=== PATIENT | male | born 1990 | race Caucasian/White ===

== ENCOUNTER 2016-12-20 20:33 | Inpatient (IN) | payer OTHER ==
[2016-12-20 20:53] VITALS: BMI 32.6
--- NOTE | 2016-12-20 21:28 | HP ---
COWS - Scale Resting Pulse: 2= [place] 101-120 Sweatin= Chills/Flushing Restless Observation: 5= Unable to Sit Still Pupil Size: 0= Normal to Room Light Bone or Joint Aches: 2= Severe Diffuse Aches Runny Nose/ Eye Tearin= Runny Nose/Eyes GI Upset > 30mins: 1= Stomach Cramp Tremor Observation: 1= Tremor [place], Not Seen Yawning Observation: 1= 1-2x During Session Anxiety or Irritability: 2=Irritable/Anxious Goose Flesh Skin: 3=Piloerection COWS Score: 20 Admission ROS [facility] - [facility] Chief Complaint: WITHDRAWAL SYMPTOMS Allergies/Adverse Reactions: Allergies Allergy/AdvReac Type Severity Reaction Status Date / Time No Known Allergies Allergy Verified 07/26/16 11:32 History of Present Illness: 26 Y.O. MAN WITH A 7 YEAR HISTORY OF OPIATE ABUSE IS SEEKING DETOX. HE REPORTS HE'S BEEN INJECTING HIMSELF WITH HEROIN FOR THE LAST YEAR. HE STATES HE WAS PRESCRIBED SUBOXONE BY HIS PCP BUT THE PT. STARTED USING HEROIN AGAIN. HE REPORTS HAVING A PERIOD OF 7-8 MONTHS OF SOBRIETY. Exam Limitations: No Limitations - Ebola screening Have you traveled outside of the country in the last 21 days: No Have you had contact with anyone from an Ebola affected area: No Have you been sick,other than usual withdrawal symptoms: No Do you have a fever: No - Review of Systems Constitutional: Chills, Diaphoresis, Loss of Appetite, Changes in sleep EENT: reports: Tearing, Nose Congestion Respiratory: reports: No Symptoms reported Cardiac: reports: No Symptoms Reported GI: reports: Nausea, Poor Appetite, Abdominal cramping : reports: No Symptoms Reported Musculoskeletal: reports: No Symptoms Reported Integumentary: reports: No Symptoms Reported Neuro: reports: Tremors Endocrine: reports: No Symptoms Reported Hematology: reports: No Symptoms Reported Psychiatric: reports: Orientated x3, Anxious (TAKES XANAX AND VALIUM) Other Systems: Reviewed and Negative Patient History - Patient Medical History Hx Anemia: No Hx Asthma: Yes (ALBUTEROL AND ADVAIR ) Hx Chronic Obstructive Pulmonary Disease (COPD): No Hx Cancer: No Hx Cardiac Disorders: No Hx Congestive Heart Failure: No Hx Hypertension: No Hx Hypercholesterolemia: No Hx Pacemaker: No HX Cerebrovascular Accident: No Hx Seizures: No Hx Dementia: No Hx Diabetes: No Hx Gastrointestinal Disorders: No Hx Liver Disease: No Hx Genitourinary Disorders: No Hx Sexually Transmitted Disorders: No Hx Renal Disease (ESRD): No Hx Thyroid Disease: No Hx Human Immunodeficiency Virus (HIV): No (last 11/26 negative) Hx Hepatitis C: No Hx Depression: No Hx Suicide Attempt: No Hx Bipolar Disorder: No Hx Schizophrenia: No - Patient Surgical History Past Surgical History: No Hx Neurologic Surgery: No Hx Cataract Extraction: No Hx Cardiac Surgery: No Hx Lung Surgery: No Hx Breast Surgery: No Hx Breast Biopsy: No Hx Abdominal Surgery: No Hx Appendectomy: No Hx Cholecystectomy: No Hx Genitourinary Surgery: No Hx Orthopedic Surgery: Yes (arthroscopic surgery right knee in 2007) Anesthesia Reaction: No - PPD History Previous Implant?: Yes Documented Results: Negative w/o proof Implanted On Prior R Admission?: Yes Date: 07/28/16 PPD to be Administered?: Yes - Reproductive History Patient is a Female of Child Bearing Age (11 -55 yrs old): No - Smoking Cessation Smoking history: Former smoker Have you smoked in the past 12 months: Yes Aproximately how many cigarettes per day: 1 Cigars Per Day: 0 Hx Chewing Tobacco Use: No Initiated information on smoking cessation: No - Substance & Tx. History Hx Alcohol Use: No Hx Substance Use: Yes Substance Use Type: Heroin Hx Substance Use Treatment: Yes (TWICE TO DETOX BUT LEFT AMA BOTH TIMES ) - Substances Abused Heroin Route: Injection Frequency: Daily Amount used: 20 bags Age of first use: 24 Date of Last Use: 12/20/16 oxycodone Frequency: 1-2 times per week Amount used: 4 pills Age of first use: 17 Family Disease History - Family Disease History Family Disease History: Diabetes: Grandparent (htn ), Respiratory: Mother ( asthma ), Other: Grandparent Admission Physical Exam BHS - Vital Signs Vital Signs: Vital Signs - 24 hr 12/20/16 20:51 Temperature 96.3 F L Pulse Rate 108 H Respiratory 20 Rate Blood Pressure 130/83 - Physical General Appearance: Yes: Tremorous, Anxious HEENTM: Yes: Nasal Congestion Respiratory: Yes: No Respiratory Distress, No Accessory Muscle Use, Wheezing, Expiration Neck: Yes: No masses,lesions,Nodules, Trachea in good position Breast: Yes: Breast Exam Deferred Cardiology: Yes: Regular Rhythm, S1, S2, Tachycardia Abdominal: Yes: Normal Bowel Sounds, Non Tender, Flat, Soft Genitourinary: Yes: Within Normal Limits Back: Yes: Normal Inspection Musculoskeletal: Yes: Gait Steady Extremities: Yes: Normal Capillary Refill, Normal Inspection, Normal Range of Motion, Non-Tender Neurological: Yes: Fully Oriented, Alert, Normal Mood/Affect, Normal Response, Abnormal Cranial NS Integumentary: Yes: Normal Color, Dry, Warm Lymphatic: Yes: Within Normal Limits - Diagnostic (1) Opioid dependence with withdrawal Current Visit: Yes Status: Chronic (2) Asthma Current Visit: Yes Status: Chronic Qualifiers: Asthma severity: mild intermittent Asthma complication type: uncomplicated Qualified Code(s): J45.20 - Mild intermittent asthma, uncomplicated Cleared for Admission [facility] - Detox or Rehab [facility] Level of Care: Medically Managed Detox Regimen/Protocol: Methadone [facility] Breath Alcohol Content Breath Alcohol Content: 0 Urine Drug Screen - Results Drug Screen Negative: No Urine Drug Screen Results: [place]-Cocaine, OPI-Opiates, BZO-Benzodiazepines, MTD- Methadone, TCA-Tricyclic Antidepress, OXY-Oxycodone
[2016-12-20] MEDS ORDERED: ACETAMINOPHEN 325 MG TABLET (FP) PO PRN (21:42)
[2016-12-20] MEDS ORDERED: LOPERAMIDE HCL 2 MG CAPSULE PO PRN (21:42)
[2016-12-20] MEDS ORDERED: MAGNESIUM HYDROX 2400MG/30ML ORAL SUSPENSION 30 ML CUP PO PRN (21:42)
[2016-12-20] MEDS ORDERED: guaiFENesin/D-METHORPHAN HB 10 ML UNIT-DOSE CUPS PO PRN (21:42)
[2016-12-20] MEDS ORDERED: P-EPHED 60MG/TRIPROLIDI 2.5MG TABLET PO PRN (21:42)
[2016-12-20] MEDS ORDERED: MAGNESIUM CITRATE 300 ML BOTTLE PO PRN (21:42)
[2016-12-20] MEDS ORDERED: IBUPROFEN 400 MG TABLET (FP) PO PRN (21:42)
[2016-12-20] MEDS ORDERED: METHADONE HCL 10 MG TABLET (FOR DETOX USE ONLY) PO ONE ×2 (21:42→23:00)
[2016-12-20] MEDS ORDERED: MAG HYDROX/AL HYDROX/SIMETH 30 ML UNIT-DOSE CUP PO PRN (21:42)
[2016-12-20] MEDS ORDERED: diphenhydrAMINE HCL 50 MG CAPSULE PO PRN (21:42)
[2016-12-20] MEDS ORDERED: MENTHOL/PHENOL 1 EACH UD MM PRN (21:42)
[2016-12-20] MEDS ORDERED: hydrOXYzine PAMOATE 50 MG CAPSULE (FP) PO PRN (21:42)
[2016-12-20] MEDS ORDERED: THIAMINE HCL 100 MG TABLET (FP) PO SCH (22:00)
[2016-12-20] MEDS: diazePAM 5 MG TABLET PO PRN (22:54)
[2016-12-20] MEDS: ALBUTEROL SO4 6.7 GM HFA INHALER IH SCH (22:55)
[2016-12-20 23:07] LABS: URINE APPEARANCE CLEAR; URINE BILIRUBIN NEGATIVE (NEGATIVE); URINE BLOOD NEGATIVE (NEGATIVE); URINE COLOR YELLOW; URINE GLUCOSE (UA) NEGATIVE (NEGATIVE); URINE KETONE NEGATIVE (NEGATIVE); URINE LEUK ESTERASE NEGATIVE (NEGATIVE); URINE NITRITE NEGATIVE (NEGATIVE); URINE PROTEIN NEGATIVE (NEGATIVE); URINE UROBILINOGEN NEGATIVE E.U./dl (0.2-1.0)
[2016-12-21] MEDS: ALBUTEROL SO4 6.7 GM HFA INHALER IH SCH ×6 (01:49→21:34)
--- NOTE | 2016-12-21 08:27 | CONSULT ---
[facility] Psychiatric Consult - Data Date of interview: 12/21/16 Admission source: [facility] Identifying data: This is 26 years old male with no psychiatric hospitalization history intoxicated with: Opioids, Cocaine, Benzodiazepins, Methadone and Nicotine Substance Abuse History: - Smoking Cessation. Smoking history: Former smoker. Have you smoked in the past 12 months: Yes. Aproximately how many cigarettes per day: 1. Cigars Per Day: 0. Hx Chewing Tobacco Use: No. Initiated information on smoking cessation: No. - Substance & Tx. History. Hx Alcohol Use: No. Hx Substance Use: Yes. Substance Use Type: Heroin. Hx Substance Use Treatment: Yes (TWICE TO DETOX BUT LEFT AMA BOTH TIMES ). - Substances Abused. Heroin. Route: Injection. Frequency: Daily. Amount used: 20 bags. Age of first use: 24. Date of Last Use: 12/20/16. oxycodone. Frequency: 1-2 times per week. Amount used: 4 pills. Age of first use: 17 Medical History: Asthma, Psychiatric History: Patient reports history of depression and anxiety, reports currently is clover taking psychiatric medications Physical/Sexual Abuse/Trauma History: Denies Additional Comment: Observation. Detox Unit Care Protocol Mental Status Exam - Mental Status Exam Alert and Oriented to: Person Patient Appearance: Unkempt Mood: Sad Affect: Flat Patient Behavior: Sedated Speech Pattern: Delayed Voice Loudness: Mildly Soft/Quiet Thought Process: Circumstantial Thought Disorder: Being Controlled Hallucinations: Denies Suicidal Ideation: Denies Homicidal Ideation: Denies Insight/Judgement: Fair Sleep: Difficulty falling asleep Muscle strength/Tone: Normal Gait/Station: Shuffling Additional Comments: Observation. Detox Unit Care Protocol Psychiatric Findings - Problem List ([place] 1, 2,3) (1) Opioid dependence with withdrawal Current Visit: Yes Status: Chronic (2) Cocaine dependence Current Visit: Yes Status: Acute (3) Benzodiazepine abuse Current Visit: Yes Status: Acute (4) Nicotine dependence Current Visit: Yes Status: Acute (5) Drug-induced mood disorder Current Visit: Yes Status: Suspected - Initial Treatment Plan Initial Treatment Plan: Observation. Detox Unit Care Protocol
[2016-12-21 09:41] LABS: MCH 30.2 pg (25.7-33.7); MCHC 33.9 g/dl (32.0-35.9); MEAN CELL VOLUME 89.1 fl (80-96); MEAN PLT VOLUME 8.1 fl (7.5-11.1); PLATELET COUNT 228 K/MM3 (134-434); RDW 13.2 % (11.9-15.9); WHITE BLOOD COUNT 5.7 K/mm3 (4.0-10.0)
[2016-12-21] MEDS ORDERED: METHADONE HCL 10 MG TABLET (FOR DETOX USE ONLY) PO ONE (10:00)
[2016-12-21] MEDS ORDERED: PRENATAL VITAMINS W/ FOLIC ACID TABLET (FP) PO SCH (10:00)
[2016-12-21 10:16] LABS: ALBUMIN 3.7 g/dl (3.4-5.0); ALK PHOS 95 U/L (45-117); ANION GAP 8 (8-16); BILIRUBIN,TOTAL 0.4 mg/dL (0.2-1.0); CALCIUM 9.2 mg/dL (8.5-10.1); CO2 30 mmol/L (21-32); CREATININE 1.1 mg/dL (0.7-1.3); GLUCOSE,RANDOM 98 mg/dL (74-106); SGOT/AST 20 U/L (15-37); SGPT/ALT 67 U/L (12-78); TOT PROT 6.9 g/dl (6.4-8.2)
[2016-12-21] MEDS: diazePAM 5 MG TABLET PO PRN ×2 (10:34→14:51)
--- NOTE | 2016-12-21 10:37 | EKG ---
Test Reason : Blood Pressure : / mmHG Vent. Rate : 091 BPM Atrial Rate : 091 BPM P-R Int : 136 ms QRS Dur : 088 ms QT Int : 352 ms P-R-T Axes : 044 059 006 degrees QTc Int : 432 ms NORMAL SINUS RHYTHM NORMAL ECG NO PREVIOUS ECGS AVAILABLE Confirmed by ASIA BENAVIDEZ MD ([id number]) on 12/21/2016 10:36:49 AM Referred By: Confirmed By:ASIA BENAVIDEZ MD
[2016-12-21] MEDS ORDERED: ALBUTEROL SO4 2.5/IPRATROPIUM 0.5 INH SOL 3 ML VIAL.NEB. NEB PRN (13:36)
--- NOTE | 2016-12-21 13:42 | PN ---
S COWS - Scale Resting Pulse: 0= [place] 80 or Below Sweatin=Flushed/Facial Moisture Restless Observation: 1= Difficult to Sit Still Pupil Size: 0= Normal to Room Light Bone or Joint Aches: 2= Severe Diffuse Aches Runny Nose/ Eye Tearin= Runny Nose/Eyes GI Upset > 30mins: 1= Stomach Cramp Tremor Observation of Outstretched Hands: 2= Slight Tremor Visible Yawning Observation: 2= >3x During Session Anxiety or Irritability: 2=Irritable/Anxious Goose Flesh Skin: 0=Smooth Skin COWS Score: 14 BHS Progress Note (SOAP) Subjective: irritable agitation anxiety sweats body aches rash to left arm chills wheezing Objective: 12/21/16 13:41 Vital Signs Temperature 97.7 F 12/21/16 10:16 Pulse Rate 77 12/21/16 10:16 Respiratory Rate 18 12/21/16 10:16 Blood Pressure 121/77 12/21/16 10:16 O2 Sat by Pulse Oximetry (%) Laboratory Tests 12/20/16 12/21/16 12/21/16 23:00 06:30 06:30 WBC 5.7 RBC 4.60 Hgb 13.9 Hct 41.0 MCV 89.1 MCHC 33.9 RDW 13.2 Plt Count 228 MPV 8.1 Sodium 141 Potassium 4.2 Chloride 103 Carbon Dioxide 30 Anion Gap 8 BUN 11 Creatinine 1.1 Creat Clearance w eGFR > 60 Random Glucose 98 Calcium 9.2 Total Bilirubin 0.4 D AST 20 D ALT 67 D Alkaline Phosphatase 95 D Total Protein 6.9 Albumin 3.7 Urine Color Yellow Urine Appearance Clear Urine pH 5.0 D Ur Specific [place] 1.030 Urine Protein Negative Urine Glucose (UA) Negative Urine Ketones Negative Urine Blood Negative Urine Nitrite Negative Urine Bilirubin Negative Urine Urobilinogen Negative Ur Leukocyte Esterase Negative awake/alert ambulating no acute distress Assessment: 12/21/16 13:41 withdrawal sx Plan: continue detox increase fluids duoneb symbicort albuterol ordered hytone cream ordered
[2016-12-21] MEDS ORDERED: HYDROCORTISONE 1% TOPICAL CREAM 30 GM TUBE TP SCH (13:45)
[2016-12-21] MEDS ORDERED: ALBUTEROL SO4 2.5/IPRATROPIUM 0.5 INH SOL 3 ML VIAL.NEB. NEB ONE (14:00)
[2016-12-21 17:54] VITALS: BP 138/82; PULSE 104; TEMP 98.8
--- NOTE | 2016-12-21 21:35 | PN ---
[facility] Progress Note Note: PATIENT DID NOT WANT TO COMPLETE TREATMENT,STATED HAS TO LEAVE DUE TO HIS DAUGHTER'S BIRTHDAY,DID NOT WANT TO WAIT,SIGNED RELEASE AMA
--- NOTE | 2016-12-21 21:43 | DS ---
[facility] Detox Discharge Summary Admission Date: 12/20/16 Discharge Date: 12/21/16 - History Present History: Cocaine Dependence, Opioid Dependence, Sedative Dependence Additional Comments: PATIENT DID NOT WANT TO COMPLETE TREATMENT,STATED THAT HE HAS TO LEAVE DUE TO BIRTHDAY OF HIS DAUGHTER,SIGNED RELEASE AMA,DID NOT WANT TO WAIT Pertinent Past History: ASTHMA - Physical Exam Results Vital Signs: Vital Signs Temperature 98.8 F 12/21/16 17:54 Pulse Rate 104 H 12/21/16 17:54 Respiratory Rate 20 12/21/16 17:54 Blood Pressure 138/82 12/21/16 17:54 O2 Sat by Pulse Oximetry (%) Pertinent Admission Physical Exam Findings: WITHDRAWAL SYMPTOM - Medication Discharge Medications: Ambulatory Orders Albuterol Sulfate Inhaler - [Ventolin Hfa Inhaler -] 2 inh PO Q4H 12/20/16 - AMA Did Patient Leave Against Medical Advice: Yes
[2016-12-21] MEDS ORDERED: BUDESONIDE/FORMETEROL FUMARATE 80/4.5 mcg INHALER IH SCH (22:00)
[2016-12-22] MEDS ORDERED: METHADONE HCL 5 MG TABLET (FOR DETOX USE ONLY) PO ONE (10:00)
[2016-12-23] MEDS ORDERED: METHADONE HCL 5 MG TABLET (FOR DETOX USE ONLY) PO ONE (10:00)
[2016-12-24] MEDS ORDERED: METHADONE HCL 10 MG TABLET (FOR DETOX USE ONLY) PO ONE (10:00)
[2016-12-25] MEDS ORDERED: METHADONE HCL 5 MG TABLET (FOR DETOX USE ONLY) PO ONE (06:00)
== END 2016-12-21 21:52 | disposition left against medical advice (07) | DRG 770 ==
LOC: YASAS 20:33 → Y6N 21:16
PROVIDERS: ADMIT Internal Medicine; ATTEND Internal Medicine Addiction Medicine
PROC: HZ2ZZZZ Detoxification Services for Substance Abuse Treatment (ICD-10-PCS; principal; 2016-12-21)
DX: F11.23 Opioid dependence with withdrawal (principal); F14.20 Cocaine dependence, uncomplicated; F17.210 Nicotine dependence, cigarettes, uncomplicated; F13.10 Sedative, hypnotic or anxiolytic abuse, uncomplicated; F19.24 Other psychoactive substance dependence with psychoactive substance-induced mood disorder
CPT/HCPCS: 36415; 80053; 81003; 85027; 86593; 93005; 93010; 94640

== ENCOUNTER 2017-01-24 14:20 | Inpatient (IN) | payer OTHER ==
[2017-01-24 16:48] VITALS: BMI 35.6
--- NOTE | 2017-01-24 17:15 | HP ---
COWS - Scale Resting Pulse: 1= [place] 81-100 Sweatin=Flushed/Facial Moisture Restless Observation: 3= Extraneous Movement Pupil Size: 1= Pupils >than Normal Bone or Joint Aches: 1= Mild Discomfort Runny Nose/ Eye Tearin= Nasal Congestion GI Upset > 30mins: 1= Stomach Cramp Tremor Observation: 2= Slight Tremor Visible Yawning Observation: 0= None Anxiety or Irritability: 2=Irritable/Anxious Goose Flesh Skin: 0=Smooth Skin COWS Score: 14 Admission [facility] - [facility] Chief Complaint: WITHDRAWAL SX Allergies/Adverse Reactions: Allergies Allergy/AdvReac Type Severity Reaction Status Date / Time No Known Allergies Allergy Verified 01/24/17 17:14 History of Present Illness: 26 YEARS OLD MALE WITH LONG HISTORY OF OPIATE DEPENDENCE HAS ASTHMA AND DEPRESSION IS ADMITTED TO DETOX Exam Limitations: No Limitations - Ebola screening Have you traveled outside of the country in the last 21 days: No Have you had contact with anyone from an Ebola affected area: No Have you been sick,other than usual withdrawal symptoms: No Do you have a fever: No - Review of Systems Constitutional: Chills, Changes in sleep, Weight Stable EENT: reports: No Symptoms Reported Respiratory: reports: SOB with Exertion, Productive cough Cardiac: reports: No Symptoms Reported GI: reports: Nausea, Poor Fluid Intake, Abdominal cramping : reports: No Symptoms Reported Musculoskeletal: reports: Back Pain Integumentary: reports: Change in Color (BOTH INNER ELBOWS) Neuro: reports: Tremors Endocrine: reports: No Symptoms Reported Hematology: reports: No Symptoms Reported Psychiatric: reports: Judgement Intact, Orientated x3, Depressed Other Systems: Reviewed and Negative Patient History - Patient Medical History Hx Anemia: No Hx Asthma: Yes (ALBUTEROL AND ADVAIR ) Hx Chronic Obstructive Pulmonary Disease (COPD): No Hx Cancer: No Hx Cardiac Disorders: No Hx Congestive Heart Failure: No Hx Hypertension: No Hx Hypercholesterolemia: No Hx Pacemaker: No HX Cerebrovascular Accident: No Hx Seizures: No Hx Dementia: No Hx Diabetes: No Hx Gastrointestinal Disorders: No Hx Liver Disease: No Hx Genitourinary Disorders: No Hx Sexually Transmitted Disorders: No Hx Renal Disease (ESRD): No Hx Thyroid Disease: No Hx Human Immunodeficiency Virus (HIV): No (last 01/2017 negative) Hx Hepatitis C: No Hx Depression: Yes (ANXIETY) Hx Suicide Attempt: No Hx Bipolar Disorder: No Hx Schizophrenia: No - Patient Surgical History Past Surgical History: Yes Hx Neurologic Surgery: No Hx Cataract Extraction: No Hx Cardiac Surgery: No Hx Lung Surgery: No Hx Breast Surgery: No Hx Breast Biopsy: No Hx Abdominal Surgery: No Hx Appendectomy: No Hx Cholecystectomy: No Hx Genitourinary Surgery: No Hx Orthopedic Surgery: Yes (arthroscopic surgery right knee in 2007) Anesthesia Reaction: No - PPD History Previous Implant?: Yes Implanted On Prior R Admission?: Yes Date: 12/22/16 (AMA NEXT DAY) PPD to be Administered?: Yes - Smoking Cessation Smoking history: Former smoker Have you smoked in the past 12 months: No Cigars Per Day: 0 Hx Chewing Tobacco Use: No Initiated information on smoking cessation: No - Substance & Tx. History Hx Alcohol Use: No Hx Substance Use: Yes Substance Use Type: Heroin, Opiates, Tranquilizers Hx Substance Use Treatment: Yes - Substances Abused Heroin Route: Injection Frequency: Daily Family Disease History - Family Disease History Family Disease History: Diabetes: Grandparent (htn ), Respiratory: Mother ( asthma ), Other: Grandparent Admission Physical Exam S - Vital Signs Vital Signs: Vital Signs - 24 hr 01/24/17 16:46 Temperature 98.3 F Pulse Rate 93 H Respiratory 18 Rate Blood Pressure 151/82 - Physical General Appearance: Yes: Nourished, Appropriately Dressed, Mild Distress, Tremorous, Irritable, Sweating, Anxious HEENTM: Yes: Hearing grossly Normal, Normal ENT Inspection, Normocephalic, Normal Voice Respiratory: Yes: Chest Non-Tender, No Respiratory Distress, No Accessory Muscle Use, Wheezing, Expiration Neck: Yes: Supple, Trachea in good position Breast: Yes: Breasts Symetrical Cardiology: Yes: Regular Rhythm, S1, S2, Tachycardia Abdominal: Yes: Non Tender, Soft Genitourinary: Yes: Within Normal Limits Back: Yes: Normal Inspection Musculoskeletal: Yes: full range of Motion, Gait Steady, Back pain Extremities: Yes: Normal Range of Motion, Non-Tender, Tremors Neurological: Yes: Fully Oriented, Alert, Motor Strength 5/5, Depressed Affect Integumentary: Yes: Warm, Track [place] Lymphatic: Yes: Within Normal Limits - Diagnostic (1) Anxiety Current Visit: Yes Status: Suspected (2) Asthma Current Visit: Yes Status: Acute Qualifiers: Asthma severity: mild intermittent Asthma complication type: with status asthmaticus Qualified Code(s): J45.22 - Mild intermittent asthma with status asthmaticus (3) Opioid dependence with withdrawal Current Visit: Yes Status: Acute Cleared for Admission [facility] - Detox or Rehab [facility] Level of Care: Medically Managed Detox Regimen/Protocol: Methadone S Breath Alcohol Content Breath Alcohol Content: 0 Vital Signs - Vital Signs Vital Signs Refused: No Temperature: 98.3 F Temperature Source: Oral Pulse Rate: 93 Respiratory Rate: 18 Blood Pressure: 151/82 BP Location: Left Arm Blood Pressure Position: Sitting - Height Height: 5 ft 9 in - Weight Weight: 241 lb Weight Measurement Method: Standing Scale Body Mass Index (BMI): 35.6 - Bowel Function Bowel Movement: Yes Urine Drug Screen - Results Drug Screen Negative: No Urine Drug Screen Results: OPI-Opiates, BZO-Benzodiazepines, MTD-Methadone, TCA- Tricyclic Antidepress, OXY-Oxycodone
[2017-01-24] MEDS ORDERED: MAG HYDROX/AL HYDROX/SIMETH 30 ML UNIT-DOSE CUP PO PRN (17:18)
[2017-01-24] MEDS ORDERED: MAGNESIUM CITRATE 300 ML BOTTLE PO PRN (17:18)
[2017-01-24] MEDS ORDERED: MENTHOL/PHENOL 1 EACH UD MM PRN (17:18)
[2017-01-24] MEDS ORDERED: IBUPROFEN 400 MG TABLET (FP) PO PRN (17:18)
[2017-01-24] MEDS ORDERED: LOPERAMIDE HCL 2 MG CAPSULE PO PRN (17:18)
[2017-01-24] MEDS ORDERED: diphenhydrAMINE HCL 50 MG CAPSULE PO PRN (17:18)
[2017-01-24] MEDS ORDERED: ACETAMINOPHEN 325 MG TABLET (FP) PO PRN (17:18)
[2017-01-24] MEDS ORDERED: MAGNESIUM HYDROX 2400MG/30ML ORAL SUSPENSION 30 ML CUP PO PRN (17:18)
[2017-01-24] MEDS ORDERED: guaiFENesin/D-METHORPHAN HB 10 ML UNIT-DOSE CUPS PO PRN (17:18)
[2017-01-24] MEDS ORDERED: P-EPHED 60MG/TRIPROLIDI 2.5MG TABLET PO PRN (17:18)
[2017-01-24] MEDS ORDERED: ALBUTEROL SO4 2.5/IPRATROPIUM 0.5 INH SOL 3 ML VIAL.NEB. NEB PRN (17:25)
[2017-01-24] MEDS ORDERED: ALBUTEROL SO4 6.7 GM HFA INHALER IH PRN (17:25)
[2017-01-24] MEDS ORDERED: cloNIDine HCL 0.1 MG TABLET PO PRN ×2 (17:26→20:02)
[2017-01-24] MEDS ORDERED: METHADONE HCL 10 MG TABLET (FOR DETOX USE ONLY) PO ONE ×2 (18:00→23:00)
[2017-01-24] MEDS: diazePAM 5 MG TABLET PO PRN ×2 (18:20→22:23)
[2017-01-24] MEDS ORDERED: THIAMINE HCL 100 MG TABLET (FP) PO SCH (22:00)
[2017-01-24] MEDS: BUDESONIDE/FORMETEROL FUMARATE 80/4.5 mcg INHALER IH SCH (22:22)
[2017-01-24 22:25] LABS: URINE APPEARANCE CLEAR; URINE BILIRUBIN NEGATIVE (NEGATIVE); URINE BLOOD NEGATIVE (NEGATIVE); URINE COLOR YELLOW; URINE GLUCOSE (UA) NEGATIVE (NEGATIVE); URINE KETONE NEGATIVE (NEGATIVE); URINE LEUK ESTERASE NEGATIVE (NEGATIVE); URINE NITRITE NEGATIVE (NEGATIVE); URINE PROTEIN NEGATIVE (NEGATIVE); URINE UROBILINOGEN NEGATIVE E.U./dl (0.2-1.0)
[2017-01-25] MEDS: diazePAM 5 MG TABLET PO PRN ×3 (05:27→17:32)
--- NOTE | 2017-01-25 09:44 | PN ---
BHS COWS - Scale Resting Pulse: 1= [place] 81-100 Sweatin= Chills/Flushing Restless Observation: 3= Extraneous Movement Pupil Size: 1= Pupils >than Normal Bone or Joint Aches: 2= Severe Diffuse Aches Runny Nose/ Eye Tearin= Runny Nose/Eyes GI Upset > 30mins: 3= Vomiting/Diarrhea Tremor Observation of Outstretched Hands: 2= Slight Tremor Visible Yawning Observation: 1= 1-2x During Session Anxiety or Irritability: 2=Irritable/Anxious Goose Flesh Skin: 0=Smooth Skin COWS Score: 18 BHS Progress Note (SOAP) Subjective: ALERT,IRRITABLE,ANXIOUS,INTERRUPTED SLEEP,TREMOR,PAIN IN THE BODY AND BACK Objective: 01/25/17 09:42 Vital Signs Temperature 96.5 F L 01/25/17 06:38 Pulse Rate 74 01/25/17 06:38 Respiratory Rate 18 01/25/17 06:38 Blood Pressure 142/91 01/25/17 06:38 O2 Sat by Pulse Oximetry (%) EKG SINUS RHYTHM WITH SINUS ARRHYTHMIA,INVERTED T IN 3 Laboratory Last Values Urine Color Yellow 01/24/17 22:10 Urine Appearance Clear 01/24/17 22:10 Urine pH 8.0 (5.0-8.0) D 01/24/17 22:10 Ur Specific [place] 1.024 (1.001-1.035) 01/24/17 22:10 Urine Protein Negative (NEGATIVE) 01/24/17 22:10 Urine Glucose (UA) Negative (NEGATIVE) 01/24/17 22:10 Urine Ketones Negative (NEGATIVE) 01/24/17 22:10 Urine Blood Negative (NEGATIVE) 01/24/17 22:10 Urine Nitrite Negative (NEGATIVE) 01/24/17 22:10 Urine Bilirubin Negative (NEGATIVE) 01/24/17 22:10 Urine Urobilinogen Negative E.U./dl (0.2-1.0) 01/24/17 22:10 Ur Leukocyte Esterase Negative (NEGATIVE) 01/24/17 22:10 LABS PENDING NO CHEST PAIN,NO SOB,NO DIZZINESS Assessment: 01/25/17 09:44 WITHDRAWAL SYMPTOM Plan: CONTINUE DETOX
[2017-01-25] MEDS ORDERED: METHADONE HCL 10 MG TABLET (FOR DETOX USE ONLY) PO ONE (10:00)
[2017-01-25] MEDS ORDERED: PRENATAL VITAMINS W/ FOLIC ACID TABLET (FP) PO SCH (10:00)
[2017-01-25 10:06] LABS: MCH 30.7 pg (25.7-33.7); MCHC 33.9 g/dl (32.0-35.9); MEAN CELL VOLUME 90.7 fl (80-96); PLATELET COUNT 168 K/MM3 (134-434); RDW 14.5 % (11.9-15.9); WHITE BLOOD COUNT 6.6 K/mm3 (4.0-10.0)
[2017-01-25] MEDS: BUDESONIDE/FORMETEROL FUMARATE 80/4.5 mcg INHALER IH SCH (10:16)
[2017-01-25 10:36] LABS: ALBUMIN 4.1 g/dl (3.4-5.0); ALK PHOS 79 U/L (45-117); ANION GAP 11 (8-16); BILIRUBIN,TOTAL 0.9 mg/dL (0.2-1.0); CALCIUM 8.8 mg/dL (8.5-10.1); CO2 28 mmol/L (21-32); GLUCOSE,RANDOM 138 mg/dL (74-106); SGOT/AST 26 U/L (15-37); SGPT/ALT 50 U/L (12-78); TOT PROT 7.4 g/dl (6.4-8.2)
--- NOTE | 2017-01-25 11:27 | CONSULT ---
[facility] Psychiatric Consult - Data Date of interview: 01/25/17 Admission source: [facility] Identifying data: This is 26 years old male with no psychiatric hospitalization history intoxicated with: Opioids, Cocaine and Xanax Substance Abuse History: - Smoking Cessation. Smoking history: Former smoker. Have you smoked in the past 12 months: No. Cigars Per Day: 0. Hx Chewing Tobacco Use: No. Initiated information on smoking cessation: No. - Substance & Tx. History. Hx Alcohol Use: No. Hx Substance Use: Yes. Substance Use Type : Heroin, Opiates, Tranquilizers. Hx Substance Use Treatment: Yes. - Substances Abused. Heroin. Route: Injection. Frequency: Daily Medical History: Asthma, Obesity Psychiatric History: Patiebt reprots history of anxiety and insomnia , reportws taking for his insomnia prior to admission:L. Seroquel 100mg po qhs Physical/Sexual Abuse/Trauma History: Denies Additional Comment: Seroquel 100mg po qhs Mental Status Exam - Mental Status Exam Alert and Oriented to: Person Cognitive Function: Fair Patient Appearance: Well Groomed Mood: Anxious Affect: Mood Congruent Patient Behavior: Cooperative Speech Pattern: Appropriate Voice Loudness: Normal Thought Process: Goal Oriented Thought Disorder: Being Controlled Hallucinations: Denies Suicidal Ideation: Denies Homicidal Ideation: Denies Insight/Judgement: Fair Sleep: Difficulty falling asleep Appetite: Weight gain Muscle strength/Tone: Mild Hypertonicity Gait/Station: Normal Additional Comments: Seroquel 100mg po qhs Psychiatric Findings - Problem List ([place] 1, 2,3) (1) Opioid dependence with withdrawal Current Visit: Yes Status: Acute (2) Benzodiazepine abuse Current Visit: No Status: Acute (3) Cocaine dependence Current Visit: No Status: Acute (4) Nicotine dependence Current Visit: No Status: Acute (5) Drug-induced mood disorder Current Visit: No Status: Suspected - Initial Treatment Plan Initial Treatment Plan: Seroquel 100mg po qhs
--- NOTE | 2017-01-25 15:29 | EKG ---
Test Reason : Blood Pressure : / mmHG Vent. Rate : 072 BPM Atrial Rate : 072 BPM P-R Int : 134 ms QRS Dur : 090 ms QT Int : 356 ms P-R-T Axes : 026 059 -01 degrees QTc Int : 389 ms NORMAL SINUS RHYTHM WITH SINUS ARRHYTHMIA Confirmed by ASIA BENAVIDEZ MD ([id number]) on 01/25/2017 3:29:21 PM Referred By: Confirmed By:ASIA BENAVIDEZ MD
[2017-01-25 17:23] VITALS: BP 144/89; PULSE 86; TEMP 97.2
--- NOTE | 2017-01-25 19:10 | DS ---
[id number] Present History: Opioid Dependence Additional Comments: received nurse call patient insisted to leave, refused to face to face with provider refused eprescription agree to consider follow up care as per arranged by the counselor Pertinent Past History: asthma - Physical Exam Results Vital Signs: Vital Signs Temperature 97.2 F L 01/25/17 17:22 Pulse Rate 86 01/25/17 17:22 Respiratory Rate 18 01/25/17 17:22 Blood Pressure 144/89 01/25/17 17:22 O2 Sat by Pulse Oximetry (%) Pertinent Admission Physical Exam Findings: withdrawal sx Laboratory Last Values WBC 6.6 K/mm3 (4.0-10.0) 01/25/17 07:00 RBC 5.05 M/mm3 (4.00-5.60) 01/25/17 07:00 Hgb 15.5 GM/dL (11.7-16.9) D 01/25/17 07:00 Hct 45.8 % (35.4-49) 01/25/17 07:00 MCV 90.7 fl (80-96) 01/25/17 07:00 MCHC 33.9 g/dl (32.0-35.9) 01/25/17 07:00 RDW 14.5 % (11.9-15.9) 01/25/17 07:00 Plt Count 168 K/MM3 (134-434) D 01/25/17 07:00 MPV 8.0 fl (7.5-11.1) 01/25/17 07:00 Sodium 139 mmol/L (136-145) 01/25/17 07:00 Potassium 3.4 mmol/L (3.5-5.1) L 01/25/17 07:00 Chloride 100 mmol/L (98-107) 01/25/17 07:00 Carbon Dioxide 28 mmol/L (21-32) 01/25/17 07:00 Anion Gap 11 (8-16) 01/25/17 07:00 BUN 12 mg/dL (7-18) 01/25/17 07:00 Creatinine 1.0 mg/dL (0.7-1.3) 01/25/17 07:00 Creat Clearance w eGFR > 60 (>60) 01/25/17 07:00 Random Glucose 138 mg/dL (74-106) H D 01/25/17 07:00 Calcium 8.8 mg/dL (8.5-10.1) 01/25/17 07:00 Total Bilirubin 0.9 mg/dL (0.2-1.0) D 01/25/17 07:00 AST 26 U/L (15-37) D 01/25/17 07:00 ALT 50 U/L (12-78) D 01/25/17 07:00 Alkaline Phosphatase 79 U/L (45-117) 01/25/17 07:00 Total Protein 7.4 g/dl (6.4-8.2) 01/25/17 07:00 Albumin 4.1 g/dl (3.4-5.0) 01/25/17 07:00 Urine Color Yellow 01/24/17 22:10 Urine Appearance Clear 01/24/17 22:10 Urine pH 8.0 (5.0-8.0) D 01/24/17 22:10 Ur Specific [place] 1.024 (1.001-1.035) 01/24/17 22:10 Urine Protein Negative (NEGATIVE) 01/24/17 22:10 Urine Glucose (UA) Negative (NEGATIVE) 01/24/17 22:10 Urine Ketones Negative (NEGATIVE) 01/24/17 22:10 Urine Blood Negative (NEGATIVE) 01/24/17 22:10 Urine Nitrite Negative (NEGATIVE) 01/24/17 22:10 Urine Bilirubin Negative (NEGATIVE) 01/24/17 22:10 Urine Urobilinogen Negative E.U./dl (0.2-1.0) 01/24/17 22:10 Ur Leukocyte Esterase Negative (NEGATIVE) 01/24/17 22:10 RPR Titer Nonreactive (NONREACTIVE) 01/25/17 07:00 lab noted - Treatment Hospital Course: Detox Protocol Followed, Responded well - Medication Discharge Medications: Ambulatory Orders Albuterol Sulfate Inhaler - [Ventolin HFA Inhaler -] 2 inh PO Q4H PRN #1 Salmeterol/Fluticasone [Advair 500Mcg/50Mcg] 1 inh PO BID 01/24/17 Quetiapine Fumarate [Seroquel] 100 mg PO HS #30 tablet 01/25/17 - Diagnosis (1) Asthma Status: Acute Qualifiers: Asthma severity: mild intermittent Asthma complication type: with status asthmaticus Qualified Code(s): J45.22 - Mild intermittent asthma with status asthmaticus (2) Opioid dependence with withdrawal Status: Acute - AMA Did Patient Leave Against Medical Advice: Yes (insists to leave the facility)
[2017-01-25] MEDS ORDERED: QUEtiapine FUMARATE 100 MG TABLET (FP) PO SCH (22:00)
[2017-01-26] MEDS ORDERED: METHADONE HCL 5 MG TABLET (FOR DETOX USE ONLY) PO ONE (10:00)
[2017-01-27] MEDS ORDERED: METHADONE HCL 5 MG TABLET (FOR DETOX USE ONLY) PO ONE (10:00)
[2017-01-28] MEDS ORDERED: METHADONE HCL 10 MG TABLET (FOR DETOX USE ONLY) PO ONE (10:00)
[2017-01-29] MEDS ORDERED: METHADONE HCL 5 MG TABLET (FOR DETOX USE ONLY) PO ONE (06:00)
== END 2017-01-25 19:05 | disposition left against medical advice (07) | DRG 770 ==
LOC: YASAS 14:20 → Y3N 17:29
PROVIDERS: ADMIT Internal Medicine; ATTEND Internal Medicine
PROC: HZ2ZZZZ Detoxification Services for Substance Abuse Treatment (ICD-10-PCS; principal; 2017-01-25)
DX: F11.23 Opioid dependence with withdrawal (principal); F14.20 Cocaine dependence, uncomplicated; F17.210 Nicotine dependence, cigarettes, uncomplicated; F19.24 Other psychoactive substance dependence with psychoactive substance-induced mood disorder; F41.8 Other specified anxiety disorders; J45.22 Mild intermittent asthma with status asthmaticus
CPT/HCPCS: 36415; 80053; 81003; 85027; 86593; 93005; 93010; 94640

== ENCOUNTER 2018-06-12 12:08 | Inpatient (IN) | payer OTHER ==
[2018-06-12 12:27] VITALS: BMI 32.5
--- NOTE | 2018-06-12 14:15 | PN ---
[facility] Progress Note Note: RAPID RESPONSE CALLED AT 13.19 RESPONDED TO RAPID RESPONSE AT 13.20 PATIENT FOUND IN THE BATHROOM FACE DOWN UNRESPONSIVE PUPIL CONSTRICT,PIN POINT BP 132/66,P104,R16,T96.3 PULSE OX 93 NARCAN 0.8 MG IM AT 13.23 PATIENT RESPONDED AT 13.25 ALERT,ABLE TO SIT UP O2 BY NASAL CANULA 5 LIT/MIN 911 CALLED PATIENT TO BE TRANSPORTED BY [facility]PER TO [facility] CASE ENDORSED TO DR ERINN FONSECA AT [facility] NEED ER EVALUATION,STABILIZATION AND MEDICAL CLEARANCE
--- NOTE | 2018-06-12 17:04 | HP ---
COWS - Scale Resting Pulse: 2= CO 101-120 Sweatin= Chills/Flushing Restless Observation: 1= Difficult to Sit Still Pupil Size: 1= Pupils >than Normal Bone or Joint Aches: 1= Mild Discomfort Runny Nose/ Eye Tearin= None GI Upset > 30mins: 0= None Tremor Observation: 1= Tremor [place], Not Seen Yawning Observation: 1= 1-2x During Session Anxiety or Irritability: 2=Irritable/Anxious Goose Flesh Skin: 3=Piloerection COWS Score: 13 CIWA Score - CIWA Score Nausea/Vomitin-No Nausea/No Vomiting Muscle Tremors: 2 Anxiety: 3 Agitation: 3 Paroxysmal Sweats: 2 Orientation: 0-Oriented Tacttile Disturbances: 1-Very Mild Itch/Numbness Auditory Disturbances: 0-None Visual Disturbances: 0-None Headache: 1-Very Mild CIWA-Ar Total Score: 12 Admission ROS BHS - HPI Chief Complaint: opioid and xanax withdrawal symptoms Allergies/Adverse Reactions: Allergies Allergy/AdvReac Type Severity Reaction Status Date / Time No Known Allergies Allergy Verified 06/12/18 12:34 History of Present Illness: Patient s a 27 yo male with hx of asthma , depression, anxiety, opioid and xanax dependence is here seeking detox. [facility] suffering a [facility] [place] [facility] and found face-down in the bathroom. Reports he had injected himself with 1 mg of xanax. Last detox [facility] January 2017. Reports completed Rehab opioid and xanax at [facility]. Reports was linked [facility] Suboxone program, reports was discharged from the program and referred to detox, and will like to follow up with [facility] after completing detox. Denies suicidal / homicidal ideation. Reference #: [id number] Others' Prescriptions Patient Name: Reed Carson Date: 1990 Address: [address] [place] [address] Sex: Male Rx Written Rx Dispensed Drug Quantity Days Supply Prescriber Name 05/14/2018 05/16/2018 suboxone 8 mg-2 mg sl film 30 15 Siena Thmoas O 04/30/2018 05/01/2018 suboxone 8 mg-2 mg sl film 30 15 Siena Thomas 04/18/2018 04/19/2018 suboxone 8 mg-2 mg sl film 30 15 Siena Thomas O 02/21/2018 02/22/2018 suboxone 8 mg-2 mg sl film 90 30 Cameron Moon (DO) 02/21/2018 02/22/2018 alprazolam 1 mg tablet 90 30 Cameron Moon (DO) 01/24/2018 01/24/2018 suboxone 8 mg-2 mg sl film 90 30 Elio Martinez MD 01/24/2018 01/24/2018 alprazolam 1 mg tablet 90 30 Elio Martinez MD 12/27/2017 12/27/2017 suboxone 8 mg-2 mg sl film 90 30 Reji Wright MD 12/27/2017 12/27/2017 alprazolam 1 mg tablet 90 30 Reji Wright MD 11/29/2017 12/04/2017 suboxone 8 mg-2 mg sl film 90 30 BellReji rodriguez MD 11/29/2017 12/04/2017 alprazolam 1 mg tablet 90 30 Reji Wright MD 11/02/2017 11/04/2017 suboxone 8 mg-2 mg sl film 90 30 BellReji rodriguez MD 11/02/2017 11/04/2017 alprazolam 1 mg tablet 90 30 Reji Wright MD 10/02/2017 10/05/2017 alprazolam 1 mg tablet 90 30 BellReji rodriguez MD 10/02/2017 10/05/2017 suboxone 8 mg-2 mg sl film 90 30 Reji Wright MD 09/04/2017 09/07/2017 suboxone 8 mg-2 mg sl film 90 30 Elio Martinez MD 09/04/2017 09/07/2017 alprazolam 1 mg tablet 90 30 Elio Martinez MD 08/03/2017 08/10/2017 suboxone 8 mg-2 mg sl film 90 30 Elio Martinez MD 08/03/2017 08/07/2017 alprazolam 1 mg tablet 90 30 Elio Martinez MD 07/02/2017 07/11/2017 alprazolam 1 mg tablet 60 30 Reji Wright MD 07/02/2017 07/11/2017 suboxone 8 mg-2 mg sl film 90 30 Bellin Reji H MD 06/14/2017 06/14/2017 alprazolam 1 mg tablet 60 30 Reji Wright MD 06/14/2017 06/14/2017 suboxone 8 mg-2 mg sl film 90 30 Reji Wright MD Patient Name: Reed Carson Date: 1990 Address: [address] [place] [address] Sex: Male Rx Written Rx Dispensed Drug Quantity Days Supply Prescriber Name 04/03/2018 04/04/2018 suboxone 8 mg-2 mg sl film 30 15 Elen Burns MD Exam Limitations: No Limitations - Ebola screening Have you traveled outside of the country in the last 21 days: No Have you had contact with anyone from an Ebola affected area: No Have you been sick,other than usual withdrawal symptoms: No Do you have a fever: No - Review of Systems Constitutional: Chills, Diaphoresis, Changes in sleep EENT: reports: No Symptoms Reported Respiratory: reports: No Symptoms reported Cardiac: reports: See HPI GI: reports: Poor Fluid Intake : reports: No Symptoms Reported Musculoskeletal: reports: No Symptoms Reported Integumentary: reports: Other (healing burn on the right arm) Neuro: reports: Headache Endocrine: reports: Increased Thirst Hematology: reports: No Symptoms Reported Psychiatric: reports: Orientated x3, Anxious Other Systems: Reviewed and Negative Patient History - Patient Medical History Hx Anemia: No Hx Asthma: Yes Hx Chronic Obstructive Pulmonary Disease (COPD): No Hx Cancer: No Hx Cardiac Disorders: No Hx Congestive Heart Failure: No Hx Hypertension: No Hx Hypercholesterolemia: No Hx Pacemaker: No HX Cerebrovascular Accident: No Hx Seizures: No Hx Dementia: No Hx Diabetes: No Hx Gastrointestinal Disorders: No Hx Liver Disease: No Hx Genitourinary Disorders: No Hx Sexually Transmitted Disorders: No Hx Renal Disease (ESRD): No Hx Thyroid Disease: No Hx Human Immunodeficiency Virus (HIV): No (last 01/2017 negative) Hx Hepatitis C: No Hx Depression: Yes Hx Suicide Attempt: No Hx Bipolar Disorder: No Hx Schizophrenia: No - Patient Surgical History Past Surgical History: Yes Hx Neurologic Surgery: No Hx Cataract Extraction: No Hx Cardiac Surgery: No Hx Lung Surgery: No Hx Breast Surgery: No Hx Breast Biopsy: No Hx Abdominal Surgery: No Hx Appendectomy: No Hx Cholecystectomy: No Hx Genitourinary Surgery: No Hx Orthopedic Surgery: Yes (arthroscopic surgery right knee in 2007) Anesthesia Reaction: No - PPD History Previous Implant?: Yes Documented Results: Negative w/proof Implanted On Prior R Admission?: Yes Date: 01/26/17 PPD to be Administered?: Yes - Smoking Cessation Smoking history: Former smoker Have you smoked in the past 12 months: No Aproximately how many cigarettes per day: 1 If you are a former smoker, when did you quit?: at age 21 Cigars Per Day: 0 Hx Chewing Tobacco Use: No Initiated information on smoking cessation: Yes 'Breaking Loose' booklet given: 06/12/18 - Substance & Tx. History Hx Alcohol Use: Yes Hx Substance Use: Yes Substance Use Type: Heroin, Tranquilizers Hx Substance Use Treatment: Yes - Substances Abused Heroin Route: Injection Frequency: Daily Amount used: 10 bags Age of first use: 25 Date of Last Use: 06/12/18 Xanax Route: Oral Frequency: Daily Amount used: 4 mg. Age of first use: 26 Date of Last Use: 06/12/18 Family Disease History - Family Disease History Family Disease History: Diabetes: Grandparent (htn ), Respiratory: Mother ( asthma ), Other: Grandparent Admission Physical Exam BHS - Vital Signs Vital Signs: Vital Signs - 24 hr 06/12/18 12:23 Temperature 97.6 F Pulse Rate 91 H Respiratory 20 Rate Blood Pressure 141/98 - Physical General Appearance: Yes: Appropriately Dressed, Mild Distress, Obese, Sweating, Anxious HEENTM: Yes: EOMI, Hearing grossly Normal, Normal ENT Inspection, Normocephalic , Normal Voice, BELL, Pharynx Normal, Tm's normal Respiratory: Yes: Chest Non-Tender, Lungs Clear, Normal Breath Sounds, No Respiratory Distress, No Accessory Muscle Use Neck: Yes: No masses,lesions,Nodules, Trachea in good position Breast: Yes: Breast Exam Deferred Cardiology: Yes: Regular Rhythm, Regular Rate Genitourinary: Yes: Within Normal Limits Back: Yes: Normal Inspection Musculoskeletal: Yes: full range of Motion, Gait Steady, Pelvis Stable Extremities: Yes: Normal Capillary Refill, Normal Inspection, Normal Range of Motion, Non-Tender 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, Fully Oriented, Alert, Motor Strength 5/5, Depressed Affect Integumentary: Yes: Normal Color, Warm, Diaphoresis Lymphatic: Yes: Within Normal Limits - Diagnostic (1) Sedative, hypnotic or anxiolytic dependence with withdrawal, unspecified Current Visit: Yes Status: Acute (2) Asthma Current Visit: No Status: Acute Qualifiers: Asthma severity: mild intermittent Asthma complication type: with status asthmaticus Qualified Code(s): J45.22 - Mild intermittent asthma with status asthmaticus (3) Opioid dependence with withdrawal Current Visit: No Status: Acute (4) Depression Current Visit: No Status: Chronic Cleared for Admission [facility] - Detox or Rehab [facility] Level of Care: Medically Managed Detox Regimen/Protocol: Methadone/Valium [facility] Breath Alcohol Content Breath Alcohol Content: 0 Urine Drug Screen - Results Drug Screen Negative: No Urine Drug Screen Results: OPI-Opiates, BZO-Benzodiazepines
[2018-06-12] MEDS ORDERED: ALBUTEROL SO4 8 GM HFA INHALER IH PRN (17:21)
[2018-06-12] MEDS ORDERED: MENTHOL/PHENOL 1 EACH UD MM PRN (17:23)
[2018-06-12] MEDS ORDERED: IBUPROFEN 400 MG TABLET (FP) PO PRN (17:23)
[2018-06-12] MEDS ORDERED: MAGNESIUM HYDROX 2400MG/30ML ORAL SUSPENSION 30 ML CUP PO PRN (17:23)
[2018-06-12] MEDS ORDERED: MAG HYDROX/AL HYDROX/SIMETH 30 ML UNIT-DOSE CUP PO PRN (17:23)
[2018-06-12] MEDS ORDERED: P-EPHED 60MG/TRIPROLIDI 2.5MG TABLET PO PRN (17:23)
[2018-06-12] MEDS ORDERED: ACETAMINOPHEN 325 MG TABLET (FP) PO PRN (17:23)
[2018-06-12] MEDS ORDERED: hydrOXYzine PAMOATE 50 MG CAPSULE (FP) PO PRN (17:23)
[2018-06-12] MEDS ORDERED: MAGNESIUM CITRATE 300 ML BOTTLE PO PRN (17:23)
[2018-06-12] MEDS ORDERED: LOPERAMIDE HCL 2 MG CAPSULE PO PRN (17:23)
[2018-06-12] MEDS ORDERED: guaiFENesin/D-METHORPHAN HB 10 ML UNIT-DOSE CUPS PO PRN (17:23)
[2018-06-12] MEDS ORDERED: ALBUTEROL SO4 2.5/IPRATROPIUM 0.5 INH SOL 3 ML VIAL.NEB. NEB PRN (17:38)
[2018-06-12] MEDS ORDERED: diphenhydrAMINE HCL 25 MG CAPSULE (FP) PO PRN (17:39)
[2018-06-12] MEDS ORDERED: diazePAM 5 MG TABLET PO ONE (18:30)
[2018-06-12] MEDS ORDERED: METHADONE HCL 10 MG TABLET (FOR DETOX USE ONLY) PO ONE ×2 (18:30→23:00)
[2018-06-12] MEDS ORDERED: diphenhydrAMINE HCL 50 MG CAPSULE PO PRN (18:37)
[2018-06-12] MEDS: diazePAM 5 MG TABLET PO SCH (22:08)
[2018-06-12] MEDS: THIAMINE HCL 100 MG TABLET (FP) PO SCH (22:08)
[2018-06-12 22:09] LABS: URINE APPEARANCE CLEAR; URINE BILIRUBIN NEGATIVE (<2.0 mg/dL); URINE COLOR STRAW; URINE GLUCOSE (UA) NEGATIVE (NEGATIVE); URINE KETONE NEGATIVE (NEGATIVE); URINE LEUK ESTERASE NEGATIVE (NEGATIVE); URINE NITRITE NEGATIVE (NEGATIVE); URINE PROTEIN NEGATIVE (NEGATIVE); URINE UROBILINOGEN NEGATIVE mg/dL (0.2-1.0)
[2018-06-12] MEDS: BUDESONIDE/FORMETEROL FUMARATE 160/4.5 mcg INHALER IH SCH (22:11)
[2018-06-13] MEDS: diazePAM 5 MG TABLET PO SCH ×3 (05:28→22:08)
--- NOTE | 2018-06-13 07:41 | CONSULT ---
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 Substance Abuse History: - Smoking Cessation. Smoking history: Former smoker. Have you smoked in the past 12 months: No. Aproximately how many cigarettes per day: 1. If you are a former smoker, when did you quit?: at age 21. Cigars Per Day: 0. Hx Chewing Tobacco Use: No. Initiated information on smoking cessation: Yes. 'Breaking Loose' booklet given: 06/12/18. - Substance & Tx. History. Hx Alcohol Use: Yes. Hx Substance Use: Yes. Substance Use Type: Heroin, Tranquilizers. Hx Substance Use Treatment: Yes. - Substances Abused. Heroin. Route: Injection. Frequency: Daily. Amount used: 10 bags. Age of first use: 25. Date of Last Use: 06/12/18. Xanax. Route: Oral. Frequency : Daily. Amount used: 4 mg. Age of first use: 26. Date of Last Use: 06/12/18 Medical History: Asthma Psychiatric History: Patient reports history of depression, reports taking prior to admission: Seroquel 100mg pom qhs. Lexapro 20mg poqd. Denies suiocidal, homicidal history Physical/Sexual Abuse/Trauma History: Denies Additional Comment: Seroquel 100mg pom qhs. Lexapro 20mg poqd Mental Status Exam - Mental Status Exam Alert and Oriented to: Person Cognitive Function: Fair Patient Appearance: Unkempt Mood: Sad Affect: Mood Congruent Patient Behavior: Cooperative Speech Pattern: Appropriate Voice Loudness: Mildly Soft/Quiet Thought Process: Goal Oriented Thought Disorder: Being Controlled Hallucinations: Denies Suicidal Ideation: Denies Homicidal Ideation: Denies Insight/Judgement: Fair Sleep: Difficulty falling asleep Appetite: Fair Muscle strength/Tone: Mild Hypotonicity Gait/Station: Normal Additional Comments: Seroquel 100mg pom qhs. Lexapro 20mg poqd Psychiatric Findings - Problem List ([place] 1, 2,3) (1) Asthma Current Visit: Yes Status: Acute Qualifiers: Asthma severity: mild intermittent Asthma complication type: with status asthmaticus Qualified Code(s): J45.22 - Mild intermittent asthma with status asthmaticus (2) Opioid dependence with withdrawal Current Visit: Yes Status: Acute (3) Sedative, hypnotic or anxiolytic dependence with withdrawal, unspecified Current Visit: Yes Status: Acute (4) Benzodiazepine abuse Current Visit: No Status: Acute (5) Cocaine dependence Current Visit: No Status: Acute (6) Nicotine dependence Current Visit: No Status: Acute (7) Drug-induced mood disorder Current Visit: No Status: Suspected - Initial Treatment Plan Initial Treatment Plan: Seroquel 100mg pom qhs. Lexapro 20mg poqd
--- NOTE | 2018-06-13 09:42 | PN ---
S CIWA - CIWA Score Nausea/Vomitin Muscle Tremors: 3 Anxiety: 3 Agitation: 2 Paroxysmal Sweats: 1-Minimal Palms Moist Orientation: 0-Oriented Tacttile Disturbances: 1-Very Mild Itch/Numbness Auditory Disturbances: 1-Very Mild Visual Disturbances: 0-None Headache: 2-Mild CIWA-Ar Total Score: 16 BHS COWS - Scale Resting Pulse: 1= [place] 81-100 Sweatin= Chills/Flushing Restless Observation: 3= Extraneous Movement Pupil Size: 1= Pupils >than Normal Bone or Joint Aches: 2= Severe Diffuse Aches Runny Nose/ Eye Tearin= Nasal Congestion GI Upset > 30mins: 2= Nausea/Diarrhea Tremor Observation of Outstretched Hands: 2= Slight Tremor Visible Yawning Observation: 1= 1-2x During Session Anxiety or Irritability: 2=Irritable/Anxious Goose Flesh Skin: 0=Smooth Skin COWS Score: 16 BHS Progress Note (SOAP) Subjective: alert,irritable,anxious,interrupted sleep,tremor,pain in the body and back Objective: 06/13/18 09:42 Vital Signs Temperature 98 F 06/13/18 09:12 Pulse Rate 83 06/13/18 09:12 Respiratory Rate 18 06/13/18 09:12 Blood Pressure 126/76 06/13/18 09:12 O2 Sat by Pulse Oximetry (%) ekg nsr,normal ecg qt/qtc 344/423 Laboratory Last Values Urine Color Straw 06/12/18 20:30 Urine Appearance Clear 06/12/18 20:30 Urine pH 7.0 (5.0-8.0) 06/12/18 20:30 Ur Specific [place] 1.010 (1.001-1.035) 06/12/18 20:30 Urine Protein Negative (NEGATIVE) 06/12/18 20:30 Urine Glucose (UA) Negative (NEGATIVE) 06/12/18 20:30 Urine Ketones Negative (NEGATIVE) 06/12/18 20:30 Urine Blood Negative (NEGATIVE) 06/12/18 20:30 Urine Nitrite Negative (NEGATIVE) 06/12/18 20:30 Urine Bilirubin Negative (<2.0 mg/dL) 06/12/18 20:30 Urine Urobilinogen Negative mg/dL (0.2-1.0) 06/12/18 20:30 Ur Leukocyte Esterase Negative (NEGATIVE) 06/12/18 20:30 Laboratory Last Values Urine Color Straw 06/12/18 20:30 Urine Appearance Clear 06/12/18 20:30 Urine pH 7.0 (5.0-8.0) 06/12/18 20:30 Ur Specific [place] 1.010 (1.001-1.035) 06/12/18 20:30 Urine Protein Negative (NEGATIVE) 06/12/18 20:30 Urine Glucose (UA) Negative (NEGATIVE) 06/12/18 20:30 Urine Ketones Negative (NEGATIVE) 06/12/18 20:30 Urine Blood Negative (NEGATIVE) 06/12/18 20:30 Urine Nitrite Negative (NEGATIVE) 06/12/18 20:30 Urine Bilirubin Negative (<2.0 mg/dL) 06/12/18 20:30 Urine Urobilinogen Negative mg/dL (0.2-1.0) 06/12/18 20:30 Ur Leukocyte Esterase Negative (NEGATIVE) 06/12/18 20:30 labs pending Assessment: 06/13/18 09:45 withdrawal symptom Plan: continue detox,continue fall procotol1,close monitoring
[2018-06-13 09:46] LABS: HEMATOCRIT 40.6 % (35.4-49); MCH 31.1 pg (25.7-33.7); MCHC 34.6 g/dl (32.0-35.9); MEAN CELL VOLUME 89.9 fl (80-96); MEAN PLT VOLUME 8.7 fl (7.5-11.1); PLATELET COUNT 236 K/MM3 (134-434); RBC 4.52 M/mm3 (4.00-5.60); RDW 14.1 % (11.9-15.9); WHITE BLOOD COUNT 6.9 K/mm3 (4.0-10.0)
[2018-06-13] MEDS ORDERED: METHADONE HCL 10 MG TABLET (FOR DETOX USE ONLY) PO SCH (10:00)
[2018-06-13 10:04] LABS: CHLORIDE 103 mmol/L (98-107); POTASSIUM 4.3 mmol/L (3.5-5.1); SODIUM 142 mmol/L (136-145)
[2018-06-13] MEDS: diazePAM 5 MG TABLET PO PRN ×2 (10:21→17:43)
[2018-06-13] MEDS: PRENATAL VITAMINS W/ FOLIC ACID TABLET (FP) PO SCH (10:22)
[2018-06-13] MEDS: BUDESONIDE/FORMETEROL FUMARATE 160/4.5 mcg INHALER IH SCH ×2 (10:24→22:08)
[2018-06-13 10:30] LABS: ALK PHOS 64 U/L (45-117); ANION GAP 9 (8-16); BILIRUBIN,TOTAL 0.3 mg/dL (0.2-1.0); BLOOD UREA NITROGEN 10 mg/dL (7-18); CO2 30 mmol/L (21-32); CREATININE 0.9 mg/dL (0.7-1.3); GLUCOSE,RANDOM 87 mg/dL (74-106); SGOT/AST 14 U/L (15-37); SGPT/ALT 24 U/L (12-78); TOT PROT 7.2 g/dl (6.4-8.2)
[2018-06-13] MEDS: BACITRACIN 0.9 GM PACKET TP SCH ×2 (11:56→22:07)
--- NOTE | 2018-06-13 12:50 | EKG ---
Test Reason : Blood Pressure : / mmHG Vent. Rate : 091 BPM Atrial Rate : 091 BPM P-R Int : 128 ms QRS Dur : 084 ms QT Int : 344 ms P-R-T Axes : 049 063 004 degrees QTc Int : 423 ms NORMAL SINUS RHYTHM NORMAL ECG WHEN COMPARED WITH ECG OF 12-JUN-2018 14:49, NO SIGNIFICANT CHANGE WAS FOUND Confirmed by ASIA BENAVIDEZ MD ([id number]) on 06/13/2018 12:50:00 PM Referred By: Confirmed By:ASIA BENAVIDEZ MD
[2018-06-13] MEDS: QUEtiapine FUMARATE 100 MG TABLET (FP) PO SCH (22:10)
[2018-06-13] MEDS: THIAMINE HCL 100 MG TABLET (FP) PO SCH (23:16)
[2018-06-14] MEDS: diazePAM 5 MG TABLET PO PRN ×3 (05:39→19:50)
[2018-06-14] MEDS ORDERED: METHADONE HCL 5 MG TABLET (FOR DETOX USE ONLY) PO SCH (10:00)
--- NOTE | 2018-06-14 10:20 | PN ---
S CIWA - CIWA Score Nausea/Vomitin Muscle Tremors: 3 Anxiety: 2 Agitation: 2 Paroxysmal Sweats: 1-Minimal Palms Moist Orientation: 0-Oriented Tacttile Disturbances: 1-Very Mild Itch/Numbness Auditory Disturbances: 1-Very Mild Visual Disturbances: 0-None Headache: 2-Mild CIWA-Ar Total Score: 15 BHS COWS - Scale Resting Pulse: 1= SD 81-100 Sweatin= Chills/Flushing Restless Observation: 3= Extraneous Movement Pupil Size: 1= Pupils >than Normal Bone or Joint Aches: 2= Severe Diffuse Aches Runny Nose/ Eye Tearin= Runny Nose/Eyes GI Upset > 30mins: 2= Nausea/Diarrhea Tremor Observation of Outstretched Hands: 2= Slight Tremor Visible Yawning Observation: 1= 1-2x During Session Anxiety or Irritability: 2=Irritable/Anxious Goose Flesh Skin: 0=Smooth Skin COWS Score: 17 S Progress Note (SOAP) Subjective: alert,irritable,anxious,interrupted sleep,pain in the body and back Objective: 06/14/18 10:19 Vital Signs Temperature 97.9 F 06/14/18 09:42 Pulse Rate 82 06/14/18 09:42 Respiratory Rate 18 06/14/18 09:42 Blood Pressure 148/71 06/14/18 09:42 O2 Sat by Pulse Oximetry (%) Laboratory Last Values WBC 6.9 K/mm3 (4.0-10.0) 06/13/18 07:30 RBC 4.52 M/mm3 (4.00-5.60) 06/13/18 07:30 Hgb 14.0 GM/dL (11.7-16.9) 06/13/18 07:30 Hct 40.6 % (35.4-49) 06/13/18 07:30 MCV 89.9 fl (80-96) 06/13/18 07:30 MCH 31.1 pg (25.7-33.7) 06/13/18 07:30 MCHC 34.6 g/dl (32.0-35.9) 06/13/18 07:30 RDW 14.1 % (11.9-15.9) 06/13/18 07:30 Plt Count 236 K/MM3 (134-434) 06/13/18 07:30 MPV 8.7 fl (7.5-11.1) 06/13/18 07:30 Sodium 142 mmol/L (136-145) 06/13/18 07:30 Potassium 4.3 mmol/L (3.5-5.1) 06/13/18 07:30 Chloride 103 mmol/L (98-107) 06/13/18 07:30 Carbon Dioxide 30 mmol/L (21-32) 06/13/18 07:30 Anion Gap 9 (8-16) 06/13/18 07:30 BUN 10 mg/dL (7-18) 06/13/18 07:30 Creatinine 0.9 mg/dL (0.7-1.3) 06/13/18 07:30 Creat Clearance w eGFR > 60 (>60) 06/13/18 07:30 Random Glucose 87 mg/dL (74-106) 06/13/18 07:30 Calcium 9.0 mg/dL (8.5-10.1) 06/13/18 07:30 Total Bilirubin 0.3 mg/dL (0.2-1.0) 06/13/18 07:30 AST 14 U/L (15-37) L D 06/13/18 07:30 ALT 24 U/L (12-78) D 06/13/18 07:30 Alkaline Phosphatase 64 U/L (45-117) 06/13/18 07:30 Total Protein 7.2 g/dl (6.4-8.2) 06/13/18 07:30 Albumin 4.0 g/dl (3.4-5.0) 06/13/18 07:30 Urine Color Straw 06/12/18 20:30 Urine Appearance Clear 06/12/18 20:30 Urine pH 7.0 (5.0-8.0) 06/12/18 20:30 Ur Specific [place] 1.010 (1.001-1.035) 06/12/18 20:30 Urine Protein Negative (NEGATIVE) 06/12/18 20:30 Urine Glucose (UA) Negative (NEGATIVE) 06/12/18 20:30 Urine Ketones Negative (NEGATIVE) 06/12/18 20:30 Urine Blood Negative (NEGATIVE) 06/12/18 20:30 Urine Nitrite Negative (NEGATIVE) 06/12/18 20:30 Urine Bilirubin Negative (<2.0 mg/dL) 06/12/18 20:30 Urine Urobilinogen Negative mg/dL (0.2-1.0) 06/12/18 20:30 Ur Leukocyte Esterase Negative (NEGATIVE) 06/12/18 20:30 RPR Titer Nonreactive (NONREACTIVE) 06/13/18 07:30 HIV 1&2 Antibody Screen Negative 06/12/18 07:30 HIV P24 Antigen Negative 06/12/18 07:30 Assessment: 06/14/18 10:19 withdrawal symptom but less Plan: continue detox,medication adjust
[2018-06-14] MEDS: ESCITALOPRAM OXALATE 20 MG TABLET (FP) PO SCH (10:38)
[2018-06-14] MEDS: BUDESONIDE/FORMETEROL FUMARATE 160/4.5 mcg INHALER IH SCH ×2 (10:40→21:53)
[2018-06-14] MEDS: PRENATAL VITAMINS W/ FOLIC ACID TABLET (FP) PO SCH (10:40)
[2018-06-14] MEDS: diazePAM 5 MG TABLET PO SCH ×2 (10:40→21:54)
[2018-06-14] MEDS: BACITRACIN 0.9 GM PACKET TP SCH ×2 (10:43→21:53)
[2018-06-14] MEDS: QUEtiapine FUMARATE 100 MG TABLET (FP) PO SCH (21:53)
[2018-06-14] MEDS: THIAMINE HCL 100 MG TABLET (FP) PO SCH (21:54)
[2018-06-15] MEDS ORDERED: METHADONE HCL 10 MG TABLET (FOR DETOX USE ONLY) PO ONE (10:00)
[2018-06-15] MEDS: ESCITALOPRAM OXALATE 20 MG TABLET (FP) PO SCH (10:16)
[2018-06-15] MEDS: BACITRACIN 0.9 GM PACKET TP SCH ×2 (10:16→22:05)
[2018-06-15] MEDS: PRENATAL VITAMINS W/ FOLIC ACID TABLET (FP) PO SCH (10:16)
[2018-06-15] MEDS: diazePAM 5 MG TABLET PO SCH ×2 (10:17→22:03)
[2018-06-15] MEDS: BUDESONIDE/FORMETEROL FUMARATE 160/4.5 mcg INHALER IH SCH ×2 (10:17→22:05)
--- NOTE | 2018-06-15 12:04 | PN ---
S Progress Note (SOAP) Subjective: alert,irritable,interrupted sleep Objective: 06/15/18 12:03 Vital Signs Temperature 97.7 F 06/15/18 09:54 Pulse Rate 89 06/15/18 09:54 Respiratory Rate 18 06/15/18 09:54 Blood Pressure 132/77 06/15/18 09:54 O2 Sat by Pulse Oximetry (%) Assessment: 06/15/18 12:03 withdrawal symptom Plan: continue detox,discharge in am at 0700
[2018-06-15] MEDS: diazePAM 5 MG TABLET PO PRN (14:33)
[2018-06-15] MEDS: QUEtiapine FUMARATE 100 MG TABLET (FP) PO SCH (22:03)
[2018-06-15] MEDS: THIAMINE HCL 100 MG TABLET (FP) PO SCH (22:03)
[2018-06-16] MEDS ORDERED: METHADONE HCL 5 MG TABLET (FOR DETOX USE ONLY) PO ONE (06:00)
[2018-06-16 07:04] VITALS: BP 146/78; PULSE 65; TEMP 97.3
--- NOTE | 2018-06-16 08:24 | DS ---
[facility] Detox Discharge Summary Admission Date: 06/12/18 Discharge Date: 06/16/18 - History Present History: Opioid Dependence, Sedative Dependence Additional Comments: 27 years old male admitted on 06/12/18 for opiate and benzo withdrawal sx completed banzo and opiate detox regimen tolerated well patient left the detox unit early today the provider did not have the opportunity to assess nor evaluate the patient - Physical Exam Results Vital Signs: Vital Signs Temperature 97.3 F L 06/16/18 07:04 Pulse Rate 65 06/16/18 07:04 Respiratory Rate 18 06/16/18 07:04 Blood Pressure 146/78 06/16/18 07:04 O2 Sat by Pulse Oximetry (%) Pertinent Admission Physical Exam Findings: opiate and banzo withdrawal sx Vital Signs Temperature 97.3 F L 06/16/18 07:04 Pulse Rate 65 06/16/18 07:04 Respiratory Rate 18 06/16/18 07:04 Blood Pressure 146/78 06/16/18 07:04 O2 Sat by Pulse Oximetry (%) Laboratory Last Values WBC 6.9 K/mm3 (4.0-10.0) 06/13/18 07:30 RBC 4.52 M/mm3 (4.00-5.60) 06/13/18 07:30 Hgb 14.0 GM/dL (11.7-16.9) 06/13/18 07:30 Hct 40.6 % (35.4-49) 06/13/18 07:30 MCV 89.9 fl (80-96) 06/13/18 07:30 MCH 31.1 pg (25.7-33.7) 06/13/18 07:30 MCHC 34.6 g/dl (32.0-35.9) 06/13/18 07:30 RDW 14.1 % (11.9-15.9) 06/13/18 07:30 Plt Count 236 K/MM3 (134-434) 06/13/18 07:30 MPV 8.7 fl (7.5-11.1) 06/13/18 07:30 Sodium 142 mmol/L (136-145) 06/13/18 07:30 Potassium 4.3 mmol/L (3.5-5.1) 06/13/18 07:30 Chloride 103 mmol/L (98-107) 06/13/18 07:30 Carbon Dioxide 30 mmol/L (21-32) 06/13/18 07:30 Anion Gap 9 (8-16) 06/13/18 07:30 BUN 10 mg/dL (7-18) 06/13/18 07:30 Creatinine 0.9 mg/dL (0.7-1.3) 06/13/18 07:30 Creat Clearance w eGFR > 60 (>60) 06/13/18 07:30 Random Glucose 87 mg/dL (74-106) 06/13/18 07:30 Calcium 9.0 mg/dL (8.5-10.1) 06/13/18 07:30 Total Bilirubin 0.3 mg/dL (0.2-1.0) 06/13/18 07:30 AST 14 U/L (15-37) L D 06/13/18 07:30 ALT 24 U/L (12-78) D 06/13/18 07:30 Alkaline Phosphatase 64 U/L (45-117) 06/13/18 07:30 Total Protein 7.2 g/dl (6.4-8.2) 06/13/18 07:30 Albumin 4.0 g/dl (3.4-5.0) 06/13/18 07:30 Urine Color Straw 06/12/18 20:30 Urine Appearance Clear 06/12/18 20:30 Urine pH 7.0 (5.0-8.0) 06/12/18 20:30 Ur Specific [place] 1.010 (1.001-1.035) 06/12/18 20:30 Urine Protein Negative (NEGATIVE) 06/12/18 20:30 Urine Glucose (UA) Negative (NEGATIVE) 06/12/18 20:30 Urine Ketones Negative (NEGATIVE) 06/12/18 20:30 Urine Blood Negative (NEGATIVE) 06/12/18 20:30 Urine Nitrite Negative (NEGATIVE) 06/12/18 20:30 Urine Bilirubin Negative (<2.0 mg/dL) 06/12/18 20:30 Urine Urobilinogen Negative mg/dL (0.2-1.0) 06/12/18 20:30 Ur Leukocyte Esterase Negative (NEGATIVE) 06/12/18 20:30 RPR Titer Nonreactive (NONREACTIVE) 06/13/18 07:30 HIV 1&2 Antibody Screen Negative 06/12/18 07:30 HIV P24 Antigen Negative 06/12/18 07:30 lab noted - Treatment Hospital Course: Detox Protocol Followed, Detoxed Safely, Responded well, Discharged Condition Good, Rehab Referral Accepted Patient has Accepted a Rehab Referral to: as per counselor arranged - Medication Discharge Medications: Ambulatory Orders Albuterol Sulfate Inhaler - [Ventolin HFA Inhaler -] 2 inh PO Q4H PRN #1 Salmeterol/Fluticasone [Advair 500Mcg/50Mcg -] 1 inh PO BID 01/24/17 Alprazolam [Xanax] 1 mg PO BID 06/12/18 Escitalopram Oxalate [Lexapro -] 20 mg PO DAILY #30 tablet 06/13/18 Quetiapine Fumarate [Seroquel] 100 mg PO HS #30 tablet 06/13/18 - Diagnosis (1) Asthma Status: Chronic Qualifiers: Asthma severity: mild Asthma persistence: intermittent Asthma complication type: with status asthmaticus Qualified Code(s): J45.22 - Mild intermittent asthma with status asthmaticus (2) Nicotine dependence Status: Acute Qualifiers: Nicotine product type: cigarettes Substance use status: in withdrawal Qualified Code(s): F17.213 - Nicotine dependence, cigarettes, with withdrawal (3) Opioid dependence with withdrawal Status: Acute (4) Sedative, hypnotic or anxiolytic dependence with withdrawal, unspecified Status: Acute - AMA Did Patient Leave Against Medical Advice: No
[2018-06-16] MEDS ORDERED: diazePAM 5 MG TABLET PO SCH (10:00)
[2018-06-16] MEDS ORDERED: METHADONE HCL 10 MG TABLET (FOR DETOX USE ONLY) PO SCH (10:00)
[2018-06-17] MEDS ORDERED: METHADONE HCL 5 MG TABLET (FOR DETOX USE ONLY) PO SCH (06:00)
== END 2018-06-16 07:30 | disposition home or self-care (01) | DRG 773 ==
LOC: YASAS 12:08 → Y6N 17:08
PROVIDERS: ADMIT Surgery; ATTEND Surgery
PROC: HZ2ZZZZ Detoxification Services for Substance Abuse Treatment (ICD-10-PCS; principal; 2018-06-12)
DX: F11.23 Opioid dependence with withdrawal (principal); F13.230 Sedative, hypnotic or anxiolytic dependence with withdrawal, uncomplicated; F17.213 Nicotine dependence, cigarettes, with withdrawal; F34.1 Dysthymic disorder; F19.24 Other psychoactive substance dependence with psychoactive substance-induced mood disorder; J45.22 Mild intermittent asthma with status asthmaticus; E66.9 Obesity, unspecified; Z68.32 Body mass index [BMI] 32.0-32.9, adult
CPT/HCPCS: 36415; 80053; 81003; 85027; 86593; 87389; 93005; 93010